=== PATIENT | female | born 1985 | race Two or more races ===

== ENCOUNTER 2021-03-06 05:51 | Inpatient (IN) | payer MEDICAID ==
[~2021-03-06] VITALS: Ht 153.2 cm; Wt 83.0 kg
[2021-03-06] MEDS ORDERED: METOCLOPRAMIDE 5 MG/ML, 2ML ONE (06:00)
[2021-03-06] MEDS ORDERED: NEWBORN KIT ONE (06:00)
[2021-03-06] MEDS ORDERED: SODIUM CITRATE/CITRIC ACID 15 ML UDC ONE (06:00)
[2021-03-06] MEDS ORDERED: METOCLOPRAMIDE 5 MG/ML, 2ML IV ONE (06:00)
[2021-03-06] MEDS ORDERED: SODIUM CITRATE/CITRIC ACID 30 ML UDC PO ONE (06:00)
[2021-03-06] MEDS ORDERED: LACTATED RINGERS 1,000 ML IVBOLUS ONE (06:00)
[2021-03-06 06:17] LABS: BASOPHILS % (AUTO) 0 % (0-1); EOSINOPHILS % (AUTO) 1 % (1-7); LYMPHOCYTES % (AUTO) 21 % (22-44); MEAN CORPUSCULAR HEMOGLOBIN 26.1 pg (27.0-34.8); MEAN CORPUSCULAR HGB CONC 33.2 g/dL (32.4-35.8); MEAN PLATELET VOLUME 9.4 fL (7.4-10.4); MONOCYTES % (AUTO) 7 % (2-9); NEUTROPHILS % (AUTO) 71 % (42-75); PLATELET COUNT 234 x10^3/uL (130-400); RED BLOOD COUNT 4.34 x10^6/uL (3.82-5.3); RED CELL DISTRIBUTION WIDTH 13.8 % (9.6-15.2)
[2021-03-06] MEDS ORDERED: PLEASE ENTER HEIGHT AND WEIGHT MC SCH (06:30)
[2021-03-06] MEDS ORDERED: PLEASE ENTER ALLERGIES MC SCH (06:30)
[2021-03-06 06:41] VITALS: BP 104/66
[2021-03-06] MEDS ORDERED: CEFAZOLIN 1,000 MG ONE (07:12)
[2021-03-06] MEDS ORDERED: OXYTOCIN 10 UNITS/ML, 1ML ONE (07:12)
[2021-03-06] MEDS ORDERED: ONDANSETRON 2MG/ML, 2ML ONE (07:12)
[2021-03-06] MEDS ORDERED: HYDROmorphone 2 MG/ML, 1ML ONE (07:13)
[2021-03-06] MEDS ORDERED: FENTANYL PF 100 MCG/2ML ONE (07:13)
[2021-03-06] MEDS ORDERED: ONDANSETRON 2MG/ML, 2ML IV PRN (07:30)
[2021-03-06] MEDS ORDERED: MORPHINE SULFATE 4 MG/ML, 1ML IVPush PRN (07:30)
[2021-03-06] MEDS: KETOROLAC 30 MG/1 ML IM SCH ×3 (07:30→19:30)
[2021-03-06] MEDS ORDERED: MISOPROSTOL 200 MCG TABLET PR PRN (07:30)
[2021-03-06] MEDS ORDERED: METHYLERGONOVINE 0.2 MG/ML IM PRN (07:30)
[2021-03-06] MEDS: LACTATED RINGERS 1,000 ML IV SCH ×5 (07:30→23:30)
[2021-03-06] MEDS ORDERED: morphine SULFATE 10 MG/ML, 1ML IVPush PRN (07:30)
[2021-03-06] MEDS: PRENATAL VIT/IRON/FA 1 EACH TABLET PO SCH (09:00)
[2021-03-06] MEDS: OXYTOCIN 30U/ 0.9% NaCL 500ML 500 ML IV SCH ×2 (09:52→17:30)
[2021-03-06] MEDS: OXYcodone/APAP 5/325MG TABLET PO PRN ×3 (12:05→21:16)
[2021-03-06 12:18] VITALS: BP 98/68
[2021-03-06 15:49] LABS: BASOPHILS % (AUTO) 0 % (0-1); EOSINOPHILS % (AUTO) 0 % (1-7); LYMPHOCYTES % (AUTO) 9 % (22-44); MEAN CORPUSCULAR HEMOGLOBIN 25.8 pg (27.0-34.8); MEAN CORPUSCULAR HGB CONC 32.8 g/dL (32.4-35.8); MONOCYTES % (AUTO) 4 % (2-9); NEUTROPHILS % (AUTO) 87 % (42-75); PLATELET COUNT 221 x10^3/uL (130-400); RED BLOOD COUNT 4.12 x10^6/uL (3.82-5.3); RED CELL DISTRIBUTION WIDTH 13.8 % (9.6-15.2)
[2021-03-06 16:38] VITALS: BP 97/62
[2021-03-06 20:40] VITALS: BP 90/58
[2021-03-06] MEDS: KETOROLAC 30 MG/1 ML IV SCH (22:00)
[2021-03-06 23:40] VITALS: BP 97/67
[2021-03-07] MEDS: KETOROLAC 30 MG/1 ML IV SCH ×3 (01:08→10:00)
[2021-03-07] MEDS ORDERED: CALCIUM CARBONATE 500 MG TAB.CHEW ONE (02:00)
[2021-03-07] MEDS: CALCIUM CARBONATE 500 MG TAB.CHEW PO PRN ×2 (02:02→19:45)
[2021-03-07] MEDS: LACTATED RINGERS 1,000 ML IV SCH ×6 (03:30→23:30)
[2021-03-07] MEDS: OXYTOCIN 30U/ 0.9% NaCL 500ML 500 ML IV SCH ×3 (03:30→23:30)
[2021-03-07] MEDS: OXYcodone/APAP 5/325MG TABLET PO PRN ×3 (03:49→19:43)
[2021-03-07 05:00] VITALS: BP 92/60
[2021-03-07 08:13] VITALS: BP 117/73
[2021-03-07] MEDS: SIMETHICONE 80 MG CHEW TAB PO PRN (08:15)
[2021-03-07] MEDS: DOCUSATE 100 MG CAPSULE PO PRN ×2 (08:15→19:41)
[2021-03-07] MEDS: PRENATAL VIT/IRON/FA 1 EACH TABLET PO SCH (08:15)
[2021-03-07 09:55] VITALS: BP 104/71
[2021-03-07 18:32] VITALS: BP 102/70
[2021-03-08] MEDS: OXYcodone/APAP 5/325MG TABLET PO PRN ×5 (04:40→22:14)
[2021-03-08] MEDS: PRENATAL VIT/IRON/FA 1 EACH TABLET PO SCH (08:44)
[2021-03-08] MEDS: SIMETHICONE 80 MG CHEW TAB PO PRN (08:44)
[2021-03-08] MEDS: DOCUSATE 100 MG CAPSULE PO PRN ×2 (08:44→22:14)
[2021-03-08 08:55] VITALS: BP 105/66
[2021-03-08] MEDS: LACTATED RINGERS 1,000 ML IV SCH (09:30)
[2021-03-08] MEDS ORDERED: OXYC1TAB12 PO (14:19)
[2021-03-08] MEDS ORDERED: DOCU-131 PO (14:19)
[2021-03-08] MEDS: CALCIUM CARBONATE 500 MG TAB.CHEW PO PRN (14:33)
[2021-03-08 19:50] VITALS: BP 98/68
[2021-03-08 21:50] VITALS: BP 107/66
[2021-03-09] MEDS: OXYcodone/APAP 5/325MG TABLET PO PRN ×3 (01:50→10:32)
[2021-03-09 07:40] VITALS: BP 109/76
[2021-03-09] MEDS: DOCUSATE 100 MG CAPSULE PO PRN (10:31)
[2021-03-09] MEDS: PRENATAL VIT/IRON/FA 1 EACH TABLET PO SCH (10:31)
== END 2021-03-09 12:27 | disposition home or self-care (01) | DRG 788 ==
LOC: LDIP 05:51 → 2NW 12:00
PROVIDERS: ADMIT Obstetrics & Gynecology; ATTEND Obstetrics & Gynecology
PROC: 10D00Z1 Extraction of Products of Conception, Low, Open Approach (ICD-10-PCS; principal; 2021-03-07)
DX: O99.214 Obesity complicating childbirth (principal); O34.211 Maternal care for low transverse scar from previous cesarean delivery; Z20.822 Contact with and (suspected) exposure to COVID-19; Z37.0 Single live birth; Z3A.39 39 weeks gestation of pregnancy; E66.9 Obesity, unspecified
CPT/HCPCS: 36415; 85025; 86592; 86850; 86900; 87635; G0378; J0690; J1170; J1885; J2405; J3010; J2590; J2765; J7120